=== PATIENT | female | born 1985 | race Caucasian/White ===

== ENCOUNTER 2022-05-15 10:21 | Inpatient (IN) ==
[2022-05-15] MEDS ORDERED: OXYTOCIN 30 UNITS/500 ML BAG IV PRN (10:29)
[2022-05-15] MEDS ORDERED: LACTATED RINGER'S 1,000 ML IV PRN (10:29)
[2022-05-15] MEDS ORDERED: LIDOCAINE 1% LOCAL 20 ML VIAL INFIL PRN (10:29)
[2022-05-15] MEDS ORDERED: ceFAZolin 2000MG 2,000 MG/15 ML SYR IV STA (10:29)
--- NOTE | 2022-05-15 10:29 | History & Physical Report ---
Date of Service May 15, 2022 Assessment & Plan (1) Active labor: Plan: -Patient comes in L&D with contractions starting at 5am. -Patient's contractions are 3-4 mins apart at time of admission. -She is in active labor confirmed by physial exam. -Previous C section due to placenta previa -Was scheduled for C section on 05/18. -Will take the OR for emergent C section. -Ancef and azithromycin given. (2) Previous delivery affecting , antepartum: History of Present Illness Primary Care Provider: NO PCP at 39 weeks weeks confirmed via Ultrasound. Here due to having contractions since 5 am this morning that having been getting progressively more painful and more frequent. Complications with this include previous C section due to placenta previa. Has been attending OB appointments regularly. Currently taking no medications. Hx: HSV- Valtrex at 36 weeks. Previous for placenta previa. Was scheduled with Dr. Liao on 05/18/2022. Contractions: yes Fluid or Blood loss: none Movement: active Labs - Blood type: A- - Antibody screen: Rh - (Rhogam given 02/27/22) - Rubella: immune - VDRL/RPR: negative - Gonorrhea: negative - Chlamydia: negative - HIV: negative - HbSAg: negative - GBS: negative - Glucose tolerance x 2 Allergies Allergy/AdvReac Type Severity Reaction Status Date / Time celecoxib [From Celebrex] Allergy Unknown "can't Verified 05/14/22 13:34 remember reaction" diclofenac Allergy Unknown Verified 05/14/22 14:15 doxycycline Allergy Unknown skin Verified 05/14/22 13:34 peeling dairy Allergy Unknown Uncoded 05/14/22 14:16 Home Medications Medication Instructions Recorded Confirmed Type prenat.vits,booker,[id number]-dcjsh 1 tab PO QPM 09/07/21 05/14/22 History valacyclovir 500 mg tablet 500 mg PO BID #60 tabs 05/01/22 05/14/22 Rx (Valtrex) ibuprofen 600 mg tablet 600 mg PO Q8H PRN pain #30 tabs 05/08/22 05/14/22 Rx oxycodone-acetaminophen 5 mg-325 1 tab PO Q8H PRN pain #14 tabs 05/08/22 05/14/22 Rx mg tablet (Percocet) aspirin 81 mg capsule 81 mg PO QAM 05/14/22 05/14/22 History krill oil 500 mg capsule 500 mg PO QPM 05/14/22 05/14/22 History Patient History Medical History History of chicken pox History of COVID-19 [facility], [facility]; ear pain>resolved. History of placenta previa Hx of herpes genitalis Hx of migraines Numbness and tingling of both feet hx Surgical History H/O eye surgery H/O wisdom tooth extraction History of low transverse section 02/2020 Family History Father Prostate cancer Denies family history of Ovarian cancer Breast cancer Colorectal cancer Social History (Updated 10/04/21 @ 11:00 by Lucretia Gonzalez) Smoking Status: Never smoker Second Hand Exposure: No; Do You Dip or Chew Tobacco: No; Tobacco Cessation Education Requested by Patient: No Hx Alcohol Use: No Hx Substance Use: No Preferred Language: Kazakh Communication Ability: Effective 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 Denies breast pain. Denies dysuria. Denies headache or changes in vision. Physical Exam Physical Exam: General: Alert, oriented. No acute distress. Cardiac: Regular rate and rhythm, no murmurs/rubs/gallops. Respiratory: Clear to auscultation bilaterally a/p, no wheezes/rales/rhonchi. No increased work of breathing. Symmetrical chest rise. No respiratory distress. Abdomen: Gravid; Pelvic: Dilation 5cm; Effacement 90; Station -[address] [place] Lower Extremities: No lower extremity edema or swelling. No deep calf pain. Ashok's negative bilaterally Supervising Physician Co-Signing Physician Notes patient presented in active labor with history of prior desiring repeat with tubal ligation. consents were reviewed and signed. patient was seen with resident and agree of the above findings and plan. Resident Activity Tracking Resident Involvement: Resident Care Provided Care Provided: OB Delivery
[2022-05-15] MEDS ORDERED: AZITHROMYCIN 500 MG in DEXTROSE 5% 250 ML IV STA (10:33)
[2022-05-15] MEDS ORDERED: CITRIC ACID/SODIUM CITRATE 15 ML UDC ONE (10:42)
[2022-05-15] MEDS ORDERED: NALOXONE HCL 0.08 MG in SYRINGE 1.8 ML IV PRN (10:43)
[2022-05-15] MEDS ORDERED: MoRPHine SULFATE PF 1 MG/ML 10 ML AMP/VIAL INT SPINAL ONE (10:43)
[2022-05-15] MEDS ORDERED: LACTATED RINGER'S 500 ML IV PRN (10:43)
[2022-05-15] MEDS ORDERED: diphenhydrAMINE 50 MG/ML VIAL IV PRN (10:43)
[2022-05-15] MEDS ORDERED: HYDROmorphone INJ 0.5 MG/0.5 ML SYR IV PRN (10:43)
[2022-05-15] MEDS ORDERED: NALBUPHINE HCL INJ 10 MG/ML AMP IV PRN (10:43)
[2022-05-15] MEDS ORDERED: ePHEDrine sulfate 50 MG/ML AMP IV PRN (10:43)
[2022-05-15] MEDS ORDERED: NALOXONE HCL 0.4 MG/1 ML VIAL/CARP IV PRN (10:43)
[2022-05-15] MEDS ORDERED: ONDANSETRON INJ 2 MG/ML 2 ML VIAL IV PRN (10:43)
[2022-05-15] MEDS ORDERED: NALOXONE HCL 1 MG in SODIUM CHLORIDE 0.9% 1000ML 1,000 ML IV PRN (10:43)
[2022-05-15] MEDS ORDERED: DC INTRASPINAL MORPHINE SCH (10:45)
[2022-05-15] MEDS ORDERED: NO NARCOTICS OR SEDATIVES SCH (10:45)
[2022-05-15] MEDS ORDERED: SODIUM CHLORIDE 0.9% 1000ML 1,000 ML IV SCH (10:45)
[2022-05-15] MEDS ORDERED: fentaNYL citrate 100 MCG/2 ML VIAL ONE (10:54)
[2022-05-15] MEDS ORDERED: MoRPHine SULFATE PF 1 MG/ML 10 ML AMP/VIAL ONE (10:55)
[2022-05-15] MEDS ORDERED: OXYTOCIN 10 UNITS/ML 10ML VIAL ONE (10:57)
--- NOTE | 2022-05-15 11:02 | Anesthesiology Consultation ---
Date of Service May 15, 2022 Assessment & Plan Chart Review Chart Review: Acceptable Risk for Surgery and Patient NOT seen in Pre Admission Testing Consults Requested none ASA ASA2E Proposed Anesthesia Anesthesia Type: MAC Spinal Risk / Benefits Reviewed With: PT / POA / Parent / Guardian, Accepts Plan and Informed Consent Obtained History Surgery Operation Date: 05/15/22 11:00 Proposed Procedures p Section in LD - Benjamin Montana MD Height/Weight Height: 5 ft 6 in Weight: 66.224 kg Allergies Allergy/AdvReac Type Severity Reaction Status Date / Time celecoxib [From Celebrex] Allergy Unknown "can't Verified 05/14/22 13:34 remember reaction" diclofenac Allergy Unknown Verified 05/14/22 14:15 doxycycline Allergy Unknown skin Verified 05/14/22 13:34 peeling dairy Allergy Unknown Uncoded 05/14/22 14:16 Medications Home Medications Medication Instructions Recorded Confirmed Last Taken prenat.vits,booker,hms-bqei-ysepo 1 tab PO QPM 09/07/21 05/14/22 Unknown valacyclovir 500 mg tablet 500 mg PO BID #60 tabs 05/01/22 05/14/22 Unknown (Valtrex) ibuprofen 600 mg tablet 600 mg PO Q8H PRN pain #30 tabs 05/08/22 05/14/22 Unknown oxycodone-acetaminophen 5 mg-325 1 tab PO Q8H PRN pain #14 tabs 05/08/22 05/14/22 Unknown mg tablet (Percocet) aspirin 81 mg capsule 81 mg PO QAM 05/14/22 05/14/22 Unknown krill oil 500 mg capsule 500 mg PO QPM 05/14/22 05/14/22 Unknown Active Medications Generic Name Dose Route Start Last Admin Trade Name Freq PRN Reason Stop Dose Admin Lactated Ringer's 1,000 mls @ 125 mls/hr 05/15/22 10:29 05/15/22 10:45 Lr IV 05/17/22 10:28 999 mls/hr .Q8H PRN Administration L&D Protocol Protocol NPO Date Last Intake of Fluids: 05/15/22 Time Last Intake of Fluids: 08:00 Date Last Intake of Solids: 05/15/22 Time Last Intake of Solids: 06:30 Past Medical History Medical History History of chicken pox History of COVID-19 [facility], [facility]; ear pain>resolved. History of placenta previa Hx of herpes genitalis Hx of migraines Numbness and tingling of both feet hx Exercise / Class Metabolic Activity II 4-5 Yardwork/Stairs/Walk up hill Past Family History Family History Father Prostate cancer Denies family history of Ovarian cancer Breast cancer Colorectal cancer Past Surgical History Surgical History H/O eye surgery H/O wisdom tooth extraction History of low transverse section 02/2020 Past Anesthesia History No Hx of Anesthesia Complications and No Family Hx of Anesthesia Complications History of PONV No Hx of PONV and No Hx of Motion Sickness Social History Smoking Status: Never smoker Do You Dip or Chew Tobacco: No Hx Alcohol Use: No Alcohol type: hard liquor alcohol intake frequency: holidays/special occasions only Hx Substance Use: No substance use type: does not use Review of Systems no chest pain or sob Physical Exam Vital Signs Last Vital Signs Temp 36.7 C 05/15/22 10:42 Pulse 82 05/15/22 10:59 Resp 18 05/15/22 10:42 BP 115/76 05/15/22 10:59 Pulse Ox 99 05/15/22 10:58 ENMT Mouth: no TMJ abnormality Thyromental Distance: > or= 3.5 Finger Breadths Mallampati Class: II Neck normal visual inspection Respiratory normal respiratory effort Auscultation: lungs clear to auscultation bilaterally Cardiovascular Rate/Rhythm: regular rate and regular rhythm Musculoskeletal Spine: normal cervical ROM Neurologic moves all extremities Psychiatric Orientation: alert and oriented x 3
[2022-05-15] MEDS ORDERED: PHENYLEPHRINE 100MCG/ML 5ML SYR ONE (11:03)
[2022-05-15 11:16] LABS: Hematocrit (blood only) 39.4 % (34.1-44.9); Mean Corpuscular Hgb Conc 35.5 g/dL (32.0-36.0); Mean Corpuscular Volume 92.9 fL (80.0-100.0); Mean Platelet Volume 10.3 fL (9.4-12.3); Platelet Count 203 K/uL (130-400); RDW Coefficient of Variation 12.4 % (11.5-14.5); RDW Standard Deviation 42.4 fL (36.4-46.3); Red Blood Count 4.24 M/uL (3.93-5.22); White Blood Count 14.75 K/ul (4.8-10.8)
[2022-05-15] MEDS ORDERED: ONDANSETRON INJ 2 MG/ML 2 ML VIAL ONE (11:42)
--- NOTE | 2022-05-15 12:46 | Post Operative Brief Note ---
PG Immediate Post Op with CF Date of Surgery May 15, 2022 Pre & Post Diagnosis Operation Date: 05/15/22 11:00 term intrauterine at 39w0d Prior Active Labor I identified the patient and participated in the time-out.: Yes Procedure Operation Date: 05/15/22 11:00 Actual Procedures p Section in LD of live male child at 1138 - Benjamin Montana MD Surgeon Benjamin Montana MD Freelance Operator Dr Hinojosa PGY-1 Estimated Blood Loss 500 Findings Consistent with Post-Op Diagnosis Specimens Specimen Description: 1. Placenta 2. Cord blood 3. Portion of left and right fallopian tube Drains Conte Catheter OB Procedure charges OB Charges [id number] Add on Tubal for C/S
[2022-05-15] MEDS ORDERED: MAGNESIUM HYDROXIDE SUSP 30 ML UDC PO PRN (12:58)
[2022-05-15] MEDS ORDERED: SENNA 8.6 MG TAB PO PRN (12:58)
[2022-05-15] MEDS ORDERED: LACTATED RINGER'S 1,000 ML IV SCH (12:58)
[2022-05-15] MEDS ORDERED: HYDROCORTISONE ACETATE 25 MG SUPP PR PRN (12:58)
[2022-05-15] MEDS ORDERED: BENZOCAINE 20% AER SPR 82.5 GM CAN EXT PRN (12:58)
[2022-05-15] MEDS ORDERED: DIPHTHERIA/TETANUS/PERTUSSIS 0.5mL SYR/VIAL (Age 7+yrs) IM ONE (12:58)
--- NOTE | 2022-05-15 13:08 | Anesthesiology Progress Note ---
Date of Service May 15, 2022 Anesthesia Post Procedure Vital Signs Vital Signs: Temp Pulse Resp BP Pulse Ox 05/15/22 12:40 36.7 C 18 05/15/22 13:07 67 102/57 L 05/15/22 13:02 68 100 05/15/22 12:57 61 100 05/15/22 12:58 59 L 105/57 L 05/15/22 12:52 58 L 100 05/15/22 12:47 71 100 05/15/22 12:42 58 L 100 05/15/22 12:40 66 101/56 L 88 L 05/15/22 12:37 98 05/15/22 12:37 62 05/15/22 12:37 67 92/56 L 05/15/22 11:03 84 99 05/15/22 10:58 89 99 05/15/22 10:59 82 115/76 05/15/22 10:53 82 98 05/15/22 10:48 85 98 05/15/22 10:43 92 H 98 05/15/22 10:38 93 H 98 05/15/22 10:42 36.7 C 18 Transfer of Care Handoff Completed per policy Notes Mental Status: alert / awake / arousable Patient Amnestic to Procedure: Yes Nausea / Vomiting: adequately controlled Pain: adequately controlled Airway Patency, RR, SpO2: stable & adequate BP & HR: stable & adequate Hydration State: stable & adequate Neuraxial Anesthesia: was administered and sensory block is resolving Anesthetic Complications: no major complications apparent and Pt Satisfied with anesthetic care
[2022-05-15] MEDS ORDERED: ceFAZolin 2000MG 2,000 MG/15 ML SYR IV ONE (13:41)
[2022-05-15] MEDS: OXYTOCIN 20 UNITS in LACTATED RINGER'S 1,000 ML IV SCH ×2 (14:23→22:52)
[2022-05-15] MEDS: KETOROLAC 30 MG/ML VIAL IV PRN ×2 (15:21→21:15)
[2022-05-15] MEDS: SIMETHICONE 80 MG CHEW PO SCH ×2 (18:32→21:21)
[2022-05-15] MEDS: DOCUSATE SODIUM 100 MG CAP PO SCH (21:21)
--- NOTE | 2022-05-15 21:43 | Operative Report (OR) ---
DATE OF SERVICE: 05/15/2022. PROCEDURE: Repeat low transverse section with bilateral tubal ligation and scar r evision. SURGEON: Benjamin Montana MD COORDINATOR OF GENETIC SERVICES: Dr. Rohit Hinojosa, PGY1. PREOPERATIVE DIAGNOSES: 1. Term intrauterine at 39 weeks 0 days gestational age. 2. Active labor. 3. History of prior section, desiring repeat. 4. Desire permanent sterilization. POSTOPERATIVE DIAGNOSES: 1. Term intrauterine at 39 weeks 0 days gestational age. 2. Active labor. 3. History of prior section, desiring repeat. 4. Desire permanent sterilization. 5. Status post procedure. ESTIMATED BLOOD LOSS: 500 mL. DRAINS: Conte catheter. FLUIDS: Continuous lactated Ringer. URINE OUTPUT: Per Conte catheter. COMPLICATIONS: None. FINDINGS: Normal-appearing ovaries and fallopian tubes bilateral, single viable with weight pending and Apgars of 9 and 9 at one and five minutes respectively. DESCRIPTION OF PROCEDURE: The patient was taken to the operating room after consents were ensured. Upon presentation, she was properly identified. Spinal anesthesia was obtained without difficulty. The patient was then prepped and draped in normal sterile fashion. A preprocedural timeout was perfo rmed. An incision was then made with a knife. This was made in an elliptical pattern to remove the prior scar, which was noted to have a keloid. After removal of the prior scar, t he incision was then carried down to underlying fascia with the Bovie. The fascia was then nicked at the midline with a knife. The fascia was extended laterally with pickdaniel and Da Silva scissors in each direction. The superior aspect of the fascia was grasped with Kochers x2, elevated off the underlyin g rectus muscles using blunt dissection. Inferior aspect of the fascia was grasped with Kochers x2, elevated off the underlying rectus muscles using blunt dissection. The midline was then entered blun tly and placed on stretch to provide adequate room for delivery. A bladder blade was inserted. Blad rosaline flap was created. A low transverse uterine incision was then made with a knife. The head of the was noted to be in cephalic position, delivered through the hysterotomy without difficulty. Body and shoulders quickly followed. was noted to be vigorous upon delivery and a 30-second delayed cord clamping was initiated. Cord was then double clamped and cut. The was taken t o the waiting nursery staff. Cord blood was obtained. Attention was then turned to delivery of the placenta, was delivered, 3-vessel cord, gentle cord traction, and uterine massage. The uterus was ex teriorized. Several passes were made to remove any remaining membranes with a dry lap. The hysterot raz was then reapproximated with 0 Vicryl continuous running stitch. A second imbricating layer was performed. There was noted to be several areas of small bleeding and [id number] stitches were u sed to achieve hemostasis. The tubal ligation portion of the procedure was then initiated via a comp lete salpingectomy. A ____ LigaSure was then used to dissect the tube from the mesosalpinx with prog ressive cautery dissection. Both fallopian tubes were resected to the uterine cornua. The posterior cul-de-sac was cleaned of clots and debris and the hysterotomy was reinspected and noted to have con tinued hemostasis. The uterus was returned to the maternal abdomen and right and left pericolic gutt ers were cleaned of clots and debris. Hysterotomy was reinspected and noted to have good hemostasis. The muscle, subcutaneous layers, and fascial layers were all inspected and noted to be hemostatic. The fascia was then reapproximated with 0 Vicryl continuous running stitch. The subcutaneous layers were reapproximated with 2-0 plain in two layers. The skin was reapproximated with 3-0 Vicryl in a continuous subcuticular stitch with a continuous running stitch. A surgical dressing was then applie d and the decision was made to end the case. Both mother and were stable in the immediate po st-delivery period. Needle, sponge, and instrument counts were correct at the completion of the case . Job ID: [id number]
[2022-05-16] MEDS: KETOROLAC 30 MG/ML VIAL IV PRN (04:41)
[2022-05-16] MEDS ORDERED: PROMETHAZINE HCL 25 MG in SODIUM CHLORIDE 0.9% 50 ML IV PRN (04:43)
[2022-05-16] MEDS ORDERED: diphenhydrAMINE Capsule 25 MG CAP PO PRN (04:43)
[2022-05-16] MEDS ORDERED: ONDANSETRON INJ 2 MG/ML 2 ML VIAL IV PRN (04:43)
[2022-05-16] MEDS ORDERED: diphenhydrAMINE 50 MG/ML VIAL IV PRN (04:43)
--- NOTE | 2022-05-16 07:14 | Obstetrical Progress Note ---
Date of Service <Rohit MedeirosAlicia AshishDO - Last Filed: 05/16/22 08:47> May 16, 2022 Assessment & Plan <Rohit HinojosaDO - Last Filed: 05/16/22 08:47> (1) S/P section: - Feels well today. Eating well, voiding well, ambulating well. - Pain well controlled with ibuprofen 600mg Q4H PRN and Percocet 5/325 Q4H - Routine care -- OOB, ambulation, diet progression as tolerated - After discharge will have 6 week follow-up with Dr. Montana - 11.1 hgb today. Was 14.0 before surgery. Will continue to monitor with morning labs but no intervention needed at this time. (2) S/P tubal ligation: <Benjamin Montana MD - Last Filed: 05/17/22 14:40> (1) S/P section: (2) S/P tubal ligation: Subjective <Rohit MedeirosAlicia SamDO murphy - Last Filed: 05/16/22 08:47> Patient is a 37 y/o female who is POD #1 following delivery at 39 weeks and tubal ligation. She reports feeling well overall this morning. Mild abdominal cramping & 4/10 pain well managed on analgesics. Voiding well. Tolerating meals overnight and able to ambulate some. Able to pass gas and has not had a bowel movement. Has some persistent lochia with some improvement this morning. Currently breast feeding. Review of Systems Denies fever, chills, sweats Denies shortness of breath, difficulty breathing, chest pain, palpitations, chest pressure. Denies breast pain. Denies dysuria. Denies headache or changes in vision. Physical Exam <Rohit MedeirosAlicia SamDO murphy - Last Filed: 05/16/22 08:47> General: Alert, oriented. No acute distress. Cardiac: Regular rate and rhythm, no murmurs/rubs/gallops. Respiratory: Clear to auscultation bilaterally a/p, no wheezes/rales/rhonchi. No increased work of breathing. Symmetrical chest rise. No respiratory distress. Abdomen: Soft, nontender, nondistended. Bowel sounds present. Uterus: Uterine fundus firm, palpable 2 cm below umbilicus. Lower Extremities: No lower extremity edema or swelling. No deep calf pain. Ashok's negative bilaterally. Results & Data ([facility]) <Rohit Hinojosa DO - Last Filed: 05/16/22 08:47> Vital Signs (Past 12 Hours) Vital Signs Temp Pulse Resp BP Pulse Ox O2 Del Method 05/16/22 04:50 18 99 05/16/22 04:50 36.5 C 58 L 18 99/62 L 99 Room Air 05/16/22 03:18 16 98 05/16/22 02:18 18 99 05/16/22 01:00 18 98 05/16/22 00:00 16 97 05/15/22 23:13 16 98 05/15/22 23:13 36.7 C 64 16 102/64 98 Room Air 05/15/22 22:00 16 97 05/15/22 21:15 16 97 05/15/22 20:00 16 99 05/15/22 19:39 16 100 05/15/22 19:39 36.9 C 61 18 107/67 100 Room Air <Benjamin Montana MD - Last Filed: 05/17/22 14:40> Co-Signing Physician Notes Patient seen and evaluated with resident and agree with the findings and plan. Routine care. Resident Activity Tracking <Rohit Hinojosa DO - Last Filed: 05/16/22 08:47> Resident Involvement: Resident Care Provided Care Provided: OB Delivery
[2022-05-16 07:44] LABS: Basophils # (auto) 0.05 K/uL (0-0.2); Basophils % (auto) 0.3 %; Eosinophils # (auto) 0.22 K/uL (0-0.50); Eosinophils % (auto) 1.5 %; Hematocrit (blood only) 31.7 % (34.1-44.9); Hemoglobin 11.1 g/dl (12.0-16.0); Immature Granulocytes # (auto) 0.06 K/uL (0.00-0.02); Immature Granulocytes % (auto) 0.4 %; Lymphocytes # (auto) 1.78 K/uL (1.2-3.4); Lymphocytes % (auto) 12.1 %; Mean Corpuscular Hemoglobin 32.8 pg (25.0-34.0); Mean Corpuscular Volume 93.8 fL (80.0-100.0); Mean Platelet Volume 10.5 fL (9.4-12.3); Monocytes # (auto) 1.27 K/uL (0.24-0.82); Monocytes % (auto) 8.6 %; Neutrophils # (auto) 11.36 K/uL (1.4-6.5); Neutrophils % (auto) 77.1 %; Platelet Count 161 K/uL (130-400); RDW Coefficient of Variation 12.5 % (11.5-14.5); RDW Standard Deviation 43.2 fL (36.4-46.3); Red Blood Count 3.38 M/uL (3.93-5.22); White Blood Count 14.74 K/ul (4.8-10.8)
[2022-05-16] MEDS: PRENATAL VITAMIN 1 TAB PO SCH (08:23)
[2022-05-16] MEDS: SIMETHICONE 80 MG CHEW PO SCH ×4 (08:23→20:54)
[2022-05-16] MEDS: FERROUS SULFATE 325 MG TAB PO SCH (08:23)
[2022-05-16] MEDS: DOCUSATE SODIUM 100 MG CAP PO SCH ×2 (08:23→20:54)
[2022-05-16] MEDS: oxyCODONE/ACETAMINOPHEN 5mg/325mg TAB PO PRN ×4 (08:24→20:55)
[2022-05-16] MEDS: IBUPROFEN 600 MG TAB PO PRN ×3 (12:42→20:54)
[2022-05-16] MEDS ORDERED: bisacodyL 5 MG TABEC PO SCH (20:00)
[2022-05-17] MEDS: oxyCODONE/ACETAMINOPHEN 5mg/325mg TAB PO PRN ×6 (00:06→21:33)
[2022-05-17] MEDS: IBUPROFEN 600 MG TAB PO PRN ×6 (00:07→21:34)
[2022-05-17 06:51] LABS: Hematocrit (blood only) 35.7 % (34.1-44.9)
--- NOTE | 2022-05-17 07:06 | Obstetrical Progress Note ---
Date of Service <Rohit Hinojosa - Last Filed: 05/17/22 07:34> May 17, 2022 Assessment & Plan <Rohit Hinojosa - Last Filed: 05/17/22 07:34> (1) S/P section: - Feels well today. Eating well, voiding well, ambulating well. - Pain well controlled with ibuprofen 600mg Q4H PRN and Percocet 5/325 Q4H - Routine care -- OOB, ambulation, diet progression as tolerated - After discharge will have 6 week follow-up with Dr. Montana - 12.0 hgb today after being 11.1 yesterday. No concerns at this time. - Plan to D/C tomorrow. (2) S/P tubal ligation: <Neda Liao MD, FACOG - Last Filed: 05/17/22 07:45> (1) S/P section: (2) S/P tubal ligation: Subjective <Rohit Hinojosa - Last Filed: 05/17/22 07:34> Patient is a 37 y/o female who is POD #2 following delivery at 39 weeks and tubal ligation. She reports feeling well overall this morning. Mild abdominal cramping & 4-5/10 pain well managed on analgesics. Voiding well. Tolerating meals overnight and able to ambulate some. Able to pass gas and has not had a bowel movement. Has some persistent lochia with some improvement this morning. Currently breast feeding. Review of Systems Denies fever, chills, sweats Denies shortness of breath, difficulty breathing, chest pain, palpitations, chest pressure. + nipple tenderness Denies dysuria. Denies headache or changes in vision. Physical Exam <Rohit Hinojosa - Last Filed: 05/17/22 07:34> General: Alert, oriented. No acute distress. Cardiac: Regular rate and rhythm, no murmurs/rubs/gallops. Respiratory: Clear to auscultation bilaterally a/p, no wheezes/rales/rhonchi. No increased work of breathing. Symmetrical chest rise. No respiratory distress. Abdomen: Soft, nontender, nondistended. Bowel sounds present. Uterus: Uterine fundus firm, palpable 3 cm below umbilicus. Lower Extremities: No lower extremity edema or swelling. No deep calf pain. Ashok's negative bilaterally. Results & Data ([facility]) <Rohit Hinojosa DO - Last Filed: 05/17/22 07:34> Vital Signs (Past 12 Hours) Vital Signs Temp Pulse Resp BP Pulse Ox O2 Del Method 05/16/22 23:45 36.6 C 64 18 107/65 98 Room Air 05/16/22 19:50 36.8 C 66 18 112/70 100 Room Air <Neda Liao MD, FACOG - Last Filed: 05/17/22 07:45> Co-Signing Physician Notes Resident Physician Supervision Note: I interviewed and examined the patient. Discussed with Dr. iHnojosa and agree with findings and plan as documented in the note. Any exceptions or clarifications are listed here: Doing well. Routine care. Scripts sent to her pharmacy already. Documented By: Neda Liao MD, FACOG Resident Activity Tracking <Rohit Hinojosa DO - Last Filed: 05/17/22 07:34> Resident Involvement: Resident Care Provided Care Provided: OB Delivery
[2022-05-17] MEDS: PRENATAL VITAMIN 1 TAB PO SCH (08:29)
[2022-05-17] MEDS: DOCUSATE SODIUM 100 MG CAP PO SCH ×2 (08:29→21:33)
[2022-05-17] MEDS: SIMETHICONE 80 MG CHEW PO SCH ×5 (08:29→21:33)
[2022-05-17] MEDS: FERROUS SULFATE 325 MG TAB PO SCH (08:29)
[2022-05-17] MEDS ORDERED: bisacodyL 10 MG SUPP PR PRN (12:12)
[2022-05-18] MEDS: IBUPROFEN 600 MG TAB PO PRN ×3 (02:08→12:33)
[2022-05-18] MEDS: oxyCODONE/ACETAMINOPHEN 5mg/325mg TAB PO PRN ×3 (02:08→12:32)
--- NOTE | 2022-05-18 06:08 | Obstetrical Progress Note ---
Date of Service May 18, 2022 Assessment & Plan (1) S/P section: - Feels well today. Eating well, voiding well, ambulating well. - Pain well controlled with ibuprofen 600mg Q4H PRN and Percocet 5/325 Q4H - Routine care -- OOB, ambulation, diet progression as tolerated - After discharge will have 6 week follow-up with Dr. Montana - 12.0 hgb on 05/17 after being 11.1 post surgery on 05/16. No concerns at this time. - Will D/C today (2) S/P tubal ligation: Subjective Patient is a 37 y/o female who is POD #3 following delivery at 39 weeks and tubal ligation. She reports feeling well overall this morning. Mild abdominal cramping & 5/10 pain well managed on analgesics. Voiding well. Tolerating meals overnight and able to ambulate some. Able to pass gas and has not had a bowel movement. Has some persistent lochia with some improvement this morning. Currently breast feeding. Review of Systems Denies fever, chills, sweats Denies shortness of breath, difficulty breathing, chest pain, palpitations, chest pressure. + breast tenderness Denies dysuria. Denies headache or changes in vision. Physical Exam General: Alert, oriented. No acute distress. Cardiac: Regular rate and rhythm, no murmurs/rubs/gallops. Respiratory: Clear to auscultation bilaterally a/p, no wheezes/rales/rhonchi. No increased work of breathing. Symmetrical chest rise. No respiratory distress. Abdomen: Soft, nontender, nondistended. Bowel sounds present. Uterus: Uterine fundus firm, palpable 3 cm below umbilicus. Lower Extremities: No lower extremity edema or swelling. No deep calf pain. Ashok's negative bilaterally. Results & Data ([facility]) Vital Signs (Past 12 Hours) Vital Signs Temp Pulse Resp BP Pulse Ox O2 Del Method 05/18/22 00:00 36.8 C 66 18 121/71 99 Room Air 05/17/22 19:15 36.8 C 72 18 114/71 98 Room Air Resident Activity Tracking Resident Involvement: Resident Care Provided Care Provided: OB Delivery
[2022-05-18] MEDS: FERROUS SULFATE 325 MG TAB PO SCH (07:48)
[2022-05-18] MEDS: PRENATAL VITAMIN 1 TAB PO SCH (07:48)
[2022-05-18] MEDS: SIMETHICONE 80 MG CHEW PO SCH (07:48)
[2022-05-18] MEDS: DOCUSATE SODIUM 100 MG CAP PO SCH (07:48)
== END 2022-05-18 13:42 | disposition home or self-care (01) | DRG 785 ==
LOC: OPB 10:21 → 4S1 10:23 → 4E2 15:36